=== PATIENT | female | born 1955 | race Caucasian/White ===

== ENCOUNTER 2018-07-27 08:56 | Outpatient (CLI) | payer OTHER | END 2018-07-27 09:01 | disposition home or self-care (01) | LOC: SONOGRAMA 08:56 | DX: E04.2 Nontoxic multinodular goiter (principal) ==

== ENCOUNTER 2021-12-24 08:53 | Outpatient (CLI) | payer OTHER | END 2021-12-24 08:56 | disposition home or self-care (01) | LOC: SONOGRAMA 08:53 | PROVIDERS: ATTEND Obstetrics & Gynecology Gynecology | DX: N84.0 Polyp of corpus uteri (principal) ==